=== PATIENT | male | born 1985 | race Caucasian/White ===

== ENCOUNTER 2017-05-12 12:56 | Emergency (ER) | payer OTHER ==
--- NOTE | 2017-05-12 13:04 | EDPHY ---
H & P HPI/ROS: CHIEF COMPLAINT: Sinus congestion, fever, diarrhea HISTORY OF PRESENT ILLNESS: This is a generally healthy 31-year-old male who has been ill for the last 2 weeks. The illness began as sinus congestion. He has had persistent sinus drainage. He has had mild cough. He has headache on and off. He has had fever intermittently since this illness began. He has tried [id number] sinus medications with no relief. He has to wear a respirator at work and this makes his congestion worse. Yesterday developed diarrhea and has had several bouts of diarrhea. He has been able to eat and drink. He does not have abdominal pain. He had a bout of vomiting a week ago but none since. He has not had fever today. No known exposures. No recent travel. No camping. REVIEW OF SYSTEMS: A ten point review of systems was performed and is negative with the exception of the items mentioned in the HPI. 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 General Appearance: Alert. Vital signs reviewed. Blood pressure 141/93. Afebrile. Eyes: Pupils equal and round, no conjunctival injection, no discharge. Anicteric. ENT, Mouth: Mucous membranes are moist, no oropharyngeal erythema or edema. Drainage in the posterior oropharynx. There is sinus tenderness on palpation. Neck: Mild anterior cervical lymphadenopathy, supple. Respiratory: Lungs are clear to auscultation; no wheezes, rales, or rhonchi. Cardiovascular: Regular rate and rhythm; no murmur, rub, or gallop. Gastrointestinal: Abdomen is soft and nontender, no masses or organomegaly, bowel sounds normal. Skin: Warm and dry, no rashes on exposed skin, normal color. Back: Nontender to palpation over the thoracolumbar spine. No CVAT. Extremities: No lower extremity edema, no calf tenderness or swelling. Neurological: Alert and oriented. Moving all four extremities easily and equally. Psychiatric: Normal affect. Constitutional: Initial Vital Signs Temperature (C) 37.1 C 05/12/17 13:08 Heart Rate 56 L 05/12/17 13:08 Respiratory Rate 18 05/12/17 13:08 Blood Pressure 141/93 H 05/12/17 13:08 O2 Sat (%) 99 05/12/17 13:08 O2 Delivery Mode Room Air Allergies/Adverse Reactions: No Known Allergies Allergy (Unverified 05/12/17 13:08) Home Medications: Medication Instructions Recorded Doxycycline Hyclate [Doxycycline] 100 mg PO BID #10 cap 05/12/17 Medical Decision Making ED Course/Re-evaluation: Signs and symptoms consistent with sinusitis. He has been ill for 2 weeks and I feel that antibiotics are warranted in this setting. He is being prescribed doxycycline. He understands that this might worsen his diarrhea. He was offered the opportunity to have a stool sample analyzed by the lab but chooses to forego this testing at this point in time. He will try [id number] antidiarrheal agents. He is not toxic or otherwise ill appearing. He is well hydrated. He has no abdominal pain. I do not think that additional emergency department evaluation is needed at this time. Differential Diagnosis: I considered a differential diagnosis including but not limited to pneumonia, sinusitis, urinary tract infection, viral syndrome, and influenza. It is possible that he also has a diarrheal illness which could be bacterial, viral, parasitic. He is not dehydrated Departure - Departure Disposition: Home, Routine, Self-Care Clinical Impression: Sinusitis Qualifiers: Sinusitis location: unspecified location Chronicity: acute Recurrence: non- recurrent Qualified Code(s): J01.90 - Acute sinusitis, unspecified Diarrhea Qualifiers: Diarrhea type: unspecified type Qualified Code(s): R19.7 - Diarrhea, unspecified Condition: Good Instructions: Sinusitis (ED), Acute Diarrhea (ED) Additional Instructions: I am prescribing an antibiotic, doxycycline, to take for sinusitis. Take this twice daily for two days. Try an over the counter decongestant. Sometimes antibiotics can cause diarrhea--since you have been having diarrhea lately you should be aware of this. It is fine to use one of the over the counter anti-diarrhea agents. [facility] if not getting better. Referrals: KIM JOSEPH,. [Primary Care Provider] - As per Instructions Stand Alone Forms: Work Excuse Prescriptions: Doxycycline Hyclate [Doxycycline] 100 mg PO BID #10 cap
[2017-05-12 13:10] VITALS: BP 141/93; PULSE 56; RESP 18; TEMP 98.8; O2SAT 99
== END 2017-05-12 13:30 | disposition home or self-care (01) ==
LOC: CED 12:56
DX: J01.90 Acute sinusitis, unspecified (principal); R19.7 Diarrhea, unspecified

== ENCOUNTER 2017-07-05 20:04 | Emergency (ER) | payer OTHER ==
[2017-07-05 20:21] VITALS: PULSE 83; RESP 16
[2017-07-05] MEDS ORDERED: NS 1,000 ML IV ONE ×2 (20:27→21:14)
--- NOTE | 2017-07-05 20:28 | EDPHY ---
H & P Stated Complaint: AYALA/cough/fever/congestion/ear pain x 1.5weeks. HPI/ROS: CHIEF COMPLAINT: Cough, chest burning, earache, some headache HISTORY OF PRESENT ILLNESS: This is a generally healthy 31-year-old male who was diagnosed with influenza June 29 at [facility]. Chest x-ray was reportedly negative. At that time he was evaluated in the Emergency Department and discharged with Percocet, Zofran, and Flomax. He was seen again at [facility] on July 01 and had a 2nd chest x-ray, also negative. He was discharged with albuterol and a different pain medication (that also contains Tylenol, like the Percocet--he doesn't know the name). He has been taking his medication as prescribed but continues with diffuse myalgias, headache, persistent cough, and a burning sensation in his chest. He has developed bilateral earaches and reports some drainage from his right ear. He has been able to eat and drink a bit, but today had an episode of tussive emesis. He has been unable to sleep. He denies confusion, visual changes, weakness, or numbness. REVIEW OF SYSTEMS: A ten point review of systems was performed and is negative with the exception of the items mentioned in the HPI. 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 He lives alone. General Appearance: Alert. Vital signs reviewed and within normal limits. Occasional cough. Eyes: Pupils equal and round, no conjunctival injection, no discharge. Anicteric. ENT, Mouth: Mucous membranes are moist, moderate oropharyngeal erythema without exudate or edema. Swallowing easily. Right tympanic membrane obscured by cerumen. Left tympanic membrane with erythema. Neck: No lymphadenopathy, supple. No meningeal signs. Respiratory: Lungs are clear to auscultation; no wheezes, rales, or rhonchi. Cardiovascular: Regular rate and rhythm; no murmur, rub, or gallop. Gastrointestinal: Abdomen is soft and nontender, no masses or organomegaly, bowel sounds normal. Skin: Warm and dry, no rashes on exposed skin, normal color. Back: Nontender to palpation over the thoracolumbar spine. No CVAT. Extremities: No lower extremity edema, no calf tenderness or swelling. Neurological: Alert and oriented. Moving all four extremities easily and equally. JEANNETTE. EOMI. Tongue midline. Facial expressions symmetric. Sensation intact to light touch over his face. Sensation intact to light touch over all 4 extremities. Strength 5/5 in major motor groups. Gait normal. Psychiatric: Normal affect. - Personal History Current Tetanus Diphtheria and Acellular Pertussis (TDAP): Unsure - Medical/Surgical History Hx Asthma: No Hx Chronic Respiratory Disease: No Hx Diabetes: No Hx Cardiac Disease: No Hx Renal Disease: No Hx Cirrhosis: No Hx Alcoholism: No Hx HIV/AIDS: No Hx Splenectomy or Spleen Trauma: No Other PMH: shoulder surg - Social History Smoking Status: Never smoked Constitutional: Initial Vital Signs Temperature (C) 37.5 C 07/05/17 20:19 Heart Rate 83 07/05/17 20:19 Respiratory Rate 16 07/05/17 20:19 Blood Pressure 123/78 H 07/05/17 20:19 O2 Sat (%) 94 07/05/17 20:19 O2 Delivery Mode Room Air Allergies/Adverse Reactions: No Known Allergies Allergy (Unverified 07/05/17 20:17) Home Medications: Medication Instructions Recorded Albuterol [Proventil Inhaler HFA 07/05/17 (*)] Amoxicillin Trihydrate [Amoxil] 500 mg PO Q8H #20 cap 07/05/17 Benzonatate [Tessalon Pearles (RX)] 200 mg PO TID PRN #15 cap 07/05/17 Ibuprofen 200 mg PO 07/05/17 Ondansetron Odt [Zofran Odt 4 mg 07/05/17 (*)] oxyCODONE HCL/ACETAMINOPHEN 07/05/17 [Percocet 5-325 mg Tablet] Medical Decision Making ED Course/Re-evaluation: 31-year-old male with a diagnosis of influenza 5 days ago. He continues with persistent cough and malaise. His lungs are clear and his pulse ox is within normal limits. He has had 2 chest x-rays this week and I do not feel that a 3rd will be helpful. I do not think that he has pneumonia. He complains of headache. No meningeal signs on exam. Temperature is 37.5degrees here. There is a possibility of viral meningitis in this setting. I discussed lumbar puncture as a diagnostic test for viral meningitis. I explained the procedure, the risks, and benefits. He is not interested in undergoing lumbar puncture. He understands why this procedure might be helpful. He does not have any neurologic deficits. I do not think that he has a bacterial meningitis. He is capable of making his own medical decisions and twice refused lumbar puncture tonight. He received 2 L of IV normal saline in the department. He also received amoxicillin 500 mg for otitis media and Tessalon Perles 200 mg for cough. He was given Toradol 15 mg for myalgias. His cough seemed improved after the Tessalon Perles. He is given a prescription for this medication and also for amoxicillin. He was offered admission, as this is his 3rd emergency department visit. He prefers to return home. We reviewed the danger signs that should prompt him to be immediately re-evaluated. Differential Diagnosis: I considered a differential diagnosis including but not limited to pneumonia, urinary tract infection, otitis media, mononucleosis, pertussis, viral syndrome , aseptic meningitis, bacterial meningitis, and influenza. - Data Points Laboratory Results: Laboratory Results 07/05/17 20:38 07/05/17 20:38 07/05/17 07/05/17 20:38 20:38 WBC 11.23 10^3/uL H 10^3/uL (3.80-9.50) RBC 4.83 10^6/uL 10^6/uL (4.40-6.38) Hgb 15.0 g/dL g/dL (13.7-17.5) Hct 40.8 % % (40.0-51.0) MCV 84.5 fL fL (81.5-99.8) MCH 31.1 pg pg (27.9-34.1) MCHC 36.8 g/dL H g/dL (32.4-36.7) RDW 11.7 % % (11.5-15.2) Plt Count 349 10^3/uL 10^3/uL (150-400) MPV 9.9 fL fL (8.7-11.7) Neut % (Auto) 75.3 % H % (39.3-74.2) Lymph % (Auto) 16.3 % % (15.0-45.0) [place] % (Auto) 6.0 % % (4.5-13.0) Eos % (Auto) 1.2 % % (0.6-7.6) Baso % (Auto) 0.3 % % (0.3-1.7) Nucleat RBC Rel Count 0.0 % % (0.0-0.2) Absolute Neuts (auto) 8.46 10^3/uL H 10^3/uL (1.70-6.50) Absolute Lymphs (auto) 1.83 10^3/uL 10^3/uL (1.00-3.00) Absolute Monos (auto) 0.67 10^3/uL 10^3/uL (0.30-0.80) Absolute Eos (auto) 0.14 10^3/uL 10^3/uL (0.03-0.40) Absolute Basos (auto) 0.03 10^3/uL 10^3/uL (0.02-0.10) Absolute Nucleated RBC 0.00 10^3/uL 10^3/uL (0-0.01) Immature Gran % 0.9 % % (0.0-1.1) Immature Gran # 0.10 10^3/uL 10^3/uL (0.00-0.10) Sodium 143 mEq/L mEq/L (134-144) Potassium 4.1 mEq/L mEq/L (3.5-5.2) Chloride 100 mEq/L mEq/L (97-110) Carbon Dioxide 26 mEq/l mEq/l (22-31) Anion Gap 17 mEq/L H mEq/L (8-16) BUN 16 mg/dL mg/dL (7-23) Creatinine 0.7 mg/dL mg/dL (0.7-1.3) Estimated GFR > 60 Glucose 119 mg/dL H mg/dL (70-100) Calcium 8.6 mg/dL mg/dL (8.5-10.4) Medications Given: Discontinued Medications Amoxicillin (Amoxicillin) 500 mg PO EDNOW ONE PRN Reason: Protocol Stop: 07/05/17 20:29 Last Admin: 07/05/17 20:38 Dose: 500 mg Benzonatate (Tessalon Pearles) 200 mg PO EDNOW ONE Stop: 07/05/17 21:05 Last Admin: 07/05/17 21:07 Dose: 200 mg Sodium Chloride (Ns) 1,000 mls @ 0 mls/hr IV ONCE ONE; Wide Open PRN Reason: Protocol Stop: 07/05/17 20:28 Last Admin: 07/05/17 20:37 Dose: 1,000 mls Sodium Chloride (Ns) 1,000 mls @ 0 mls/hr IV EDNOW ONE; Wide Open PRN Reason: Protocol Stop: 07/05/17 21:15 Last Admin: 07/05/17 21:16 Dose: 1,000 mls Ketorolac Tromethamine (Toradol) 15 mg IVP ONCE ONE Stop: 07/05/17 20:39 Last Admin: 07/05/17 20:39 Dose: 15 mg Departure - Departure Disposition: Home, Routine, Self-Care Clinical Impression: Influenza Otitis media Qualifiers: Otitis media type: unspecified Chronicity: acute Qualified Code(s): H66.90 - Otitis media, unspecified, unspecified ear Condition: Good Instructions: Benzonatate (By mouth), Amoxicillin (By mouth), Influenza (ED), Otitis Media (ED) Additional Instructions: Adult Pain & Fever Control: We recommend Acetaminophen (Tylenol) and Ibuprofen (Motrin,Advil) for pain and fever control. When fever is high or pain severe, both drugs can be used at the same time, but at different intervals. Please note the time differences. Your dose is: Acetaminophen 650mg every 4 to 6 hours Ibuprofen 400mg every 6 hours with food OR Note: do not take Acetaminophen with Hydrocodone (Vicodin, Lortab) or Oycodone (Percocet). These medications also contain Acetaminophen. No more than 3000mg of Acetaminophen should be taken in 24 hours (for an adult). You can continue to take the pain medication that you have but remember that it contains Tylenol. Do not take more than 3000 mg of Tylenol in a 24 hour time period. If you have persistent or worsening headache, confusion, change in vision, new numbness, new weakness, seizure activity, any new or concerning symptoms--you should be re-evaluated immediately. As we discussed, a lumbar puncture would be needed to diagnose viral meningitis. It is possible to have a viral meningitis as a result of influenza. Follow up with your primary care physician. Referrals: MICHELLE GODOY [Non Staff and Non MD] - As per Instructions Stand Alone Forms: Work Excuse Prescriptions: Amoxicillin Trihydrate [Amoxil] 500 mg PO Q8H #20 cap Benzonatate [Tessalon Pearles (RX)] 200 mg PO TID PRN #15 cap PRN Reason: Cough, Moderate
[2017-07-05] MEDS ORDERED: KETOROLAC 30 MG/1 ML SDV ONE (20:32)
[2017-07-05] MEDS ORDERED: KETOROLAC 15 MG/1 ML SDV IVP ONE (20:38)
[2017-07-05 20:51] LABS: % IMMATURE GRANULYOCYTES 0.9 % (0.0-1.1); ADD DIFF? NO; ADD MORPH? NO; ADD SCAN? NO; ATYPICAL LYMPHOCYTE FLAG 40 (0-99); FRAGMENT RBC FLAG 0 (0-99); HEMATOCRIT 40.8 % (40.0-51.0); LEFT SHIFT FLG 0 (0-99); LIPEMIA HEMOLYSIS FLAG 90 (0-99); MEAN CELL HEMOGLOBIN 31.1 pg (27.9-34.1); MEAN CELL HEMOGLOBIN CONCENTR. 36.8 g/dL (32.4-36.7); MEAN CELL VOLUME 84.5 fL (81.5-99.8); MEAN PLATELET VOLUME 9.9 fL (8.7-11.7); PLATELET CLUMPS FLAG 0 (0-99); PLATELET COUNT 349 10^3/uL (150-400); RED BLOOD CELL COUNT 4.83 10^6/uL (4.40-6.38); RED CELL DISTRIBUTION WIDTH 11.7 % (11.5-15.2)
[2017-07-05 21:03] LABS: ANION GAP 17 mEq/L (8-16); CALCIUM 8.6 mg/dL (8.5-10.4); CARBON DIOXIDE 26 mEq/l (22-31); CHLORIDE 100 mEq/L (97-110); CREATININE 0.7 mg/dL (0.7-1.3); GLOMERULAR FILTRATION RATE > 60; GLUCOSE 119 mg/dL (70-100); POTASSIUM 4.1 mEq/L (3.5-5.2); SODIUM 143 mEq/L (134-144)
[2017-07-05] MEDS ORDERED: BENZONATATE 100 MG CAP PO ONE ×2 (21:04→22:28)
[2017-07-05 22:35] VITALS: BP 128/65; TEMP 99.3; O2SAT 95
== END 2017-07-05 22:54 | disposition home or self-care (01) ==
LOC: CED 20:04
PROC: 3E0337Z Introduction of Electrolytic and Water Balance Substance into Peripheral Vein, Percutaneous Approach (ICD-10-PCS; principal; 2017-07-05)
DX: J11.1 Influenza due to unidentified influenza virus with other respiratory manifestations (principal); H66.90 Otitis media, unspecified, unspecified ear; E86.9 Volume depletion, unspecified
CPT/HCPCS: 80048-PO; 85025-PO; 96374; J1885